=== PATIENT | male | born 2005 | race Two or more races ===

== ENCOUNTER 2023-04-26 14:23 | Emergency (ER) | payer OTHER ==
[~2023-04-26] VITALS: Ht 180.3 cm; Wt 65.9 kg
[2023-04-26 15:43] VITALS: TEMP 97.8
[2023-04-26] MEDS ORDERED: SILVER SULFADIAZINE 1% 25 GM CREAM TP ONE (15:45)
[2023-04-26 16:45] VITALS: BP 101/64; PULSE 71; RESP 16
== END 2023-04-26 16:51 | disposition home or self-care (01) ==
LOC: EMS 14:31
DX: T23.271A Burn of second degree of right wrist, initial encounter (principal); T23.272A Burn of second degree of left wrist, initial encounter; T22.211A Burn of second degree of right forearm, initial encounter; V98.8XXA Other specified transport accidents, initial encounter; Y93.89 Activity, other specified; Y92.89 Other specified places as the place of occurrence of the external cause; Y99.8 Other external cause status
CPT/HCPCS: 99282; Z7502; Z7610